=== PATIENT | female | born 1960 | race Caucasian/White ===

== ENCOUNTER 2019-12-19 02:36 | Emergency (ER) | payer OTHER ==
[2019-12-19 03:29] VITALS: TEMP 98; BMI 41.4
--- NOTE | 2019-12-19 03:51 | PDOC ---
Attending Attestation - Resident Resident Name: Britt Nielsen - ED Attending Attestation I have performed the following: I have examined & evaluated the patient, The case was reviewed & discussed with the resident, I agree w/resident's findings & plan - HPI HPI: 12/19/19 05:36 Pt has right flank [pain and dysuria that has been ongoing. She states that she has no hematuria. SHe is 60 years old and she has obesity and left knee replacement. SHe has the usual HTN. high cholesterol and DM - Physicial Exam PE: 12/19/19 05:37 Awake and alert. Pt is holding her right side. She is uncomfortable. She tells me that she took OTC meds at home for the pain. 12/19/19 05:42 Afebrile No rashes Pt has no fever Right flank pain left sided no pain No rebound or guarding no pitting edema heart [id number] lungs CTA. - Medical Decision Making 12/19/19 06:44 Patient Name: GERALDO DIAZ THIS IS A PRELIMINARY REPORT FROM [facility]PER[facility] DATE OF SERVICE: 2019-12-19 05:47:50 IMAGES: [id number] EXAM: ABDOMEN \T\ PELVIS CT W/O CONTR HISTORY: Renal stone COMPARISON: None. FINDINGS: Lung bases are clear. The visualized cardiac chambers are normal size and configuration. Gallstones are noted without gallbladder inflammation or biliary duct dilation. Normal unenhanced liver, pancreas, spleen, adrenal glands and kidneys. The stomach and abdominal small and large bowel are normal. There is no aortic aneurysm. There is no significant retroperitoneal lymphadenopathy. The pelvic small and large bowel are normal. The appendix is normal The uterus and adnexal structures are notable for small calcified fibroids.. Urinary bladder is unremarkable. There is no pelvic free fluid. No discrete pelvic lymphadenopathy is identified. IMPRESSION: Gallstones. Small calcified fibroids. No definite evidence of acute pathology 12/19/19 06:58 chem is normal and she is free to go home with abx; low fat meals
--- NOTE | 2019-12-19 04:25 | PDOC ---
History of Present Illness - General Chief Complaint: Pain Stated Complaint: PAIN Time Seen by Provider: 12/19/19 03:44 History Source: Patient - History of Present Illness Initial Comments: 12/19/19 04:22 59 y/o female with a PMH of IDDM, HTN, HLD here w/L flank pain. Pain is sharp, localized to her L flank and occurring intermittently for the last 1 month. Evaluated by PMD for her pain and given a medication cannot recall the name. Endorses dysuria w/o hematuria. No fevers/chills. No known h/o nephrolithiasis. Past History - Past Medical History Allergies/Adverse Reactions: Allergies Allergy/AdvReac Type Severity Reaction Status Date / Time No Known Allergies Allergy Verified 12/19/19 03:29 Home Medications: Ambulatory Orders Cephalexin [Keflex] 500 mg PO TID #21 capsule 12/19/19 Cyclobenzaprine HCl 5 mg PO DAILY 12/19/19 Glipizide [Glucotrol -] 5 mg PO DAILY 12/19/19 Insulin Glargine,Hum.rec.anlog [Basaglar Kwikpen U-100] 60 unit SQ DAILY Insulin Lispro [Admelog] 100 unit SQ DAILY 12/19/19 Metformin HCl [Glucophage] 1,000 mg PO DAILY 12/19/19 Naproxen [Naprosyn -] 500 mg PO BID 12/19/19 Ramipril [Altace] 2.5 mg PO DAILY 12/19/19 COPD: No Diabetes: Yes - Surgical History GI Surgery: Yes (hernia) - Psycho Social/Smoking Cessation Hx Smoking History: Never smoked Have you smoked in the past 12 months: No Information on smoking cessation initiated: No Hx Alcohol Use: No Drug/Substance Use Hx: No Review of Systems - Review of Systems Constitutional: No: Chills, Fever HEENTM: No: Blurred Vision, Double Vision Respiratory: No: Cough, Shortness of Breath Cardiac (ROS): No: Syncope ABD/GI: No: Constipated, Diarrhea, Nausea, Vomiting : Yes: Dysuria. No: Hematuria *Physical Exam - Vital Signs Last Vital Signs Temp Pulse Resp BP Pulse Ox 98.0 F 86 15 135/57 L 97 12/19/19 03:08 12/19/19 03:08 12/19/19 03:08 12/19/19 03:08 12/19/19 03:08 - Physical Exam General Appearance: Yes: Nourished, Obese HEENT: positive: Normal Voice, Hearing Grossly Normal Neck: positive: Trachea midline, Supple Respiratory/Chest: positive: Lungs Clear, Normal Breath Sounds Cardiovascular: positive: S1, S2. negative: Edema Gastrointestinal/Abdominal: positive: Normal Bowel Sounds, Soft Musculoskeletal: positive: CVA Tenderness (R). negative: CVA Tenderness (L) Extremity: positive: Normal Capillary Refill, Normal Inspection ED Treatment Course - LABORATORY CBC & Chemistry Diagram: 12/19/19 05:00 12/19/19 05:00 Medical Decision Making - Medical Decision Making 12/19/19 04:47 59 y/o female with 1 month h/o R sided flank pain + dysuria. Will obtain CTAP to r/o nephrolithiasis. Also consider cystitis, pyelonephritis , muscle spasm, CBC, CMP, UA, Urine Cx pending. 12/19/19 06:19 UA shows 1+ blood, 2+ LE, 697 WBC - will give Ceftriaxone and d/c home w/Keflex Patient @ CTAP 12/19/19 06:45 CTAP shows cholelithiasis w/o nephrolithiasis CMP pending. 12/19/19 06:53 CMP unremarkable Will discharge home with return precautions and 7 day course of Keflex. Clinical Impression: uncomplicated pyelonephritis Discharge - Discharge Information Problems reviewed: Yes Clinical Impression/Diagnosis: Pyelonephritis Condition: Fair Disposition: HOME - Additional Discharge Information Prescriptions: Cephalexin [Keflex] 500 mg PO TID #21 capsule - Follow up/Referral Referrals: Brennan Reyes MD [Primary Care Provider] - - Patient Discharge Instructions Additional Instructions: Hemos enviado danni receta a rob farmacia. [place] todo el curso de antibiticos segn lo prescrito. Puede brenda Motrin (650 mg) cada 6 horas para el dolor mackenzie los prximos 5 bhat. Efrain un seguimiento con rob mdico de atencin primaria para obtener ms tratamiento. Rob atencin no estar completa hasta que sea evaluado por rob mdico de atencin primaria. Regrese al Departamento de Emergencia para cualquier sntoma nuevo / que empeore / relacionado. We have sent a prescription to your pharmacy. Please take the entire antibiotic course as prescribed. You can take Motrin (650 mg) every 6 hours for your pain for the next 5 days. Follow-up with your primary care doctor for further management. Your care is not complete until you are evaluated by your primary care doctor. Return to the Emergency Department for any new/worsening/concerning symptoms. - Post Discharge Activity
[2019-12-19] MEDS ORDERED: KETOROLAC TROMETHAMINE 30 MG/1 ML VIAL IM ONE (04:50)
[2019-12-19] MEDS ORDERED: KETOROLAC TROMETHAMINE 30 MG/1 ML VIAL ONE (05:15)
[2019-12-19 05:47] LABS: BASO % 0.4 % (0-2.0); EOS % 1.7 % (0-4.5); HEMATOCRIT 40.5 % (32.4-45.2); HEMOGLOBIN 13.9 GM/dL (10.7-15.3); LYMPH % 32.4 % (8-40); MCH 30.6 pg (25.7-33.7); MCHC 34.2 g/dl (32.0-36.0); MEAN CELL VOLUME 89.4 fl (80-96); MEAN PLT VOLUME 7.6 fl (7.5-11.1); MONO % 6.6 % (3.8-10.2); NEUT % 58.9 % (42.8-82.8); PLATELET COUNT 253 K/MM3 (134-434); RBC 4.53 M/mm3 (3.60-5.2); RDW 12.9 % (11.6-15.6); WHITE BLOOD COUNT 8.2 K/mm3 (4.0-10.0)
[2019-12-19 06:04] LABS: EPI CELLS 3.8 /HPF (0-5/HPF); HYALINE CASTS 3 /lpf (0-8); PH,URINE 5.5 (5.0-8.0); URINE APPEARANCE CLOUDY; URINE BACTERIA 45.3 /hpf (NEGATIVE); URINE BILIRUBIN NEGATIVE (NEGATIVE); URINE COLOR YELLOW; URINE GLUCOSE (UA) NEGATIVE (NEGATIVE); URINE KETONE NEGATIVE (NEGATIVE); URINE LEUK ESTERASE 2+ (NEGATIVE); URINE NITRITE NEGATIVE (NEGATIVE); URINE PROTEIN 1+ (NEGATIVE); URINE RBC 30 /hpf (0-4); URINE UROBILINOGEN 0.2 mg/dL (0.2-1.0); URINE WBC 697 /hpf (0-5)
[2019-12-19] MEDS ORDERED: CEFTRIAXONE 1 GM in DEXTROSE 5%-WATER - 100 ML IVPB ONE (06:23)
[2019-12-19 06:50] VITALS: BP 102/44; PULSE 75
[2019-12-19 06:50] LABS: ALBUMIN 3.5 g/dl (3.4-5.0); BILIRUBIN,TOTAL 0.2 mg/dL (0.2-1); BLOOD UREA NITROGEN 18.8 mg/dL (7-18); CALCIUM 8.8 mg/dL (8.5-10.1); CREATININE 0.5 mg/dL (0.55-1.3); TOT PROT 6.9 g/dl (6.4-8.2)
== END 2019-12-19 07:04 | disposition home or self-care (01) ==
LOC: JER 02:36
PROC: 3E0233Z Introduction of Anti-inflammatory into Muscle, Percutaneous Approach (ICD-10-PCS; principal; 2019-12-19)
DX: N12 Tubulo-interstitial nephritis, not specified as acute or chronic (principal); K80.20 Calculus of gallbladder without cholecystitis without obstruction; I10 Essential (primary) hypertension; E78.5 Hyperlipidemia, unspecified; E78.00 Pure hypercholesterolemia, unspecified; E11.9 Type 2 diabetes mellitus without complications; Z79.4 Long term (current) use of insulin; E66.01 Morbid (severe) obesity due to excess calories; Z68.41 Body mass index [BMI] 40.0-44.9, adult; Z96.652 Presence of left artificial knee joint
CPT/HCPCS: 36415; 74176-TC; 80053; 81003; 85025; 87077; 87086; 96372; 99283-25